=== PATIENT | male | born 1985 | race Caucasian/White ===

== ENCOUNTER 2020-03-23 21:39 | Emergency (ER) | payer SELFPAY ==
[~2020-03-23] VITALS: Ht 177.8 cm; Wt 101.2 kg
[2020-03-23 21:50] VITALS: Ht 177.8 cm; Wt 101.2 kg
[2020-03-23 23:15] LABS: BASOPHIL % 0.6 % (0.2-1.5); PLATELET COUNT 340 x10^3mcL (152-348); RED CELL DISTRIBUTION WIDTH 13.5 % (12.1-16.2)
[2020-03-23 23:51] LABS: CALCIUM 9.2 mg/dL (8.5-10.1); CHLORIDE SERUM 97 mmol/L (98-107); GFR1 > 60 mL/min; GLUCOSE SERUM 255 mg/dL (74-106); SODIUM SERUM 136 mmol/L (136-145)
[2020-03-23 23:57] LABS: ALBUMIN 3.7 g/dL (3.4-5.0); ALKALINE PHOSPHATASE 87 U/L (46-116); ALT/SGPT 43 U/L (16-63); AST/SGOT 32 U/L (15-37); BILIRUBIN TOTAL 0.62 mg/dL (0.20-1.00); TOTAL PROTEIN, SERUM 7.9 g/dL (6.4-8.2)
[2020-03-23 23:58] LABS: AMYLASE 206 U/L (25-115); POTASSIUM SERUM 3.8 mmol/L (3.5-5.1)
[2020-03-24 00:15] LABS: LIPASE 1429 IU/L (73-393)
[2020-03-24] MEDS ORDERED: ACETAMINOPHEN-H1 TA1 PO (00:26)
[2020-03-24 01:02] VITALS: BP 130/70
== END 2020-03-24 01:02 | disposition home or self-care (01) ==
LOC: ED 21:39
PROVIDERS: Emergency Medicine
DX: K85.90 Acute pancreatitis without necrosis or infection, unspecified (principal); I10 Essential (primary) hypertension; E11.9 Type 2 diabetes mellitus without complications; Z91.013 Allergy to seafood
CPT/HCPCS: 82962; J1885